=== PATIENT | female | born 1985 | race Caucasian/White ===

== ENCOUNTER 2017-06-01 17:32 | Emergency (ER) | payer OTHER ==
[~2017-06-01] VITALS: Ht 172.7 cm; Wt 77.0 kg
[2017-06-01] MEDS ORDERED: LORazepam 1MG TABLET PO ONE (19:00)
[2017-06-01 19:07] LABS: HEMOGLOBIN 12.9 g/dL (11.7-16.4); WHITE BLOOD COUNT 7.1 x10^3/uL (3.4-10)
[2017-06-01 19:14] LABS: BLOOD UREA NITROGEN 17 mg/dL (7-18)
[2017-06-01 19:19] LABS: ASPARTATE AMINO TRANSFERASE 12 U/L (15-37)
[2017-06-01 19:25] LABS: IS PT STATUS REG ER OR PRE ER? YES
[2017-06-01 20:16] VITALS: BP 137/73
== END 2017-06-01 20:18 | disposition home or self-care (01) ==
LOC: ED 19:25
DX: R07.89 Other chest pain (principal); F41.1 Generalized anxiety disorder; E03.9 Hypothyroidism, unspecified
CPT/HCPCS: 36415; 71020; 80053; 84484; 84703; 85025; 85379; 93005; 99285